=== PATIENT | male | born 1955 | race African-American/Black ===

== ENCOUNTER 2023-11-19 19:45 | Inpatient (IN) | payer OTHER ==
[~2023-11-19] VITALS: Ht 165.1 cm; Wt 70.3 kg
[2023-11-19] MEDS ORDERED: ACETAMINOPHEN 650MG SUPP PR STA (20:44)
[2023-11-19 21:18] LABS: HEMATOCRIT. 38.2 % (42.0-52.0); MEAN CORPUSCULAR HEMOGLOBIN 28.5 pg (28.0-32.0); MEAN CORPUSCULAR HGB CONC 34.1 g/dL (31.0-37.0); MEAN CORPUSCULAR VOLUME 83.5 fL (80.0-94.0); MEAN PLATELET VOLUME 8.6 fl (7.4-10.4); PLATELET 275 x1000/uL (130-400); RED BLOOD CELL COUNT 4.57 mill/uL (4.7-6.1); RED CELL DISTRIBUTION WIDTH 15.1 % (11.6-14.6); WHITE BLOOD COUNT 30.2 x1000/uL (4.5-11.0)
[2023-11-19 21:22] LABS: DIFFERENTIAL COMMENT 1
[2023-11-19] MEDS: MIDAZOLAM HCL 2 MG/2 ML VIAL IV ONE (21:24)
[2023-11-19] MEDS: ACETAMINOPHEN 650MG SUPP PR NR (21:25)
[2023-11-19 21:29] LABS: INR 1.6; PARTIAL THROMBOPLASTIN TIME 31.9 sec (23.4-31.0); PROTHROMBIN TIME 17.1 sec (9.6-11.0)
[2023-11-19 21:32] LABS: AMMONIA < 17 uMol/L (<32)
[2023-11-19 21:33] LABS: ACETAMINOPHEN < 2 ug/mL (10-30); ALANINE AMINOTRANSFERASE 57 IU/L (10-49); ALBUMIN 3.5 g/dL (3.2-4.8); ASPARTATE AMINOTRANSFERASE 53 IU/L (<34); BILIRUBIN TOTAL 2.9 mg/dL (0.1-1.0); CALCIUM 8.2 mg/dL (8.7-10.4); CARBON DIOXIDE 26 mEq/L (21-32); CHLORIDE 98 mEq/L (98-107); CREATININE 1.2 mg/dL (0.6-1.3); GLUCOSE 211 mg/dL (70-105); POTASSIUM 3.6 mEq/L (3.5-5.1); PROTEIN TOTAL 7.6 g/dL (6.0-8.3); SODIUM 136 mEq/L (136-145); UREA NITROGEN BLOOD 18 mg/dL (9-23)
[2023-11-19 21:35] LABS: LACTIC ACID 6.1 mmol/L (0.4-2.0); TROPONIN I HIGH SENSITIVITY 101 ng/L (3.0-53)
[2023-11-19] MEDS: CEFTRIAXONE 2GM/50ML 50 ML IV ONE (21:43)
[2023-11-19 21:46] LABS: PLATELET ESTIMATE NORMAL
[2023-11-19 21:50] LABS: CLARITY URINE CLOUDY (CLEAR); COLOR URINE DARK YELLOW (YELLOW); GLUCOSE URINE 2+ (NEGATIVE); KETONES URINE 1+ (NEGATIVE); LEUKOCYTE ESTERASE URINE 2+ (NEGATIVE); NITRITE URINE POSITIVE (NEGATIVE); OCCULT BLOOD URINE 2+ (NEGATIVE); PROTEIN URINE 2+ (NEGATIVE); SPECIFIC GRAVITY URINE 1.022 (1.005-1.030); UROBILINOGEN URINE >8.0 E.U./dL (0.2-1.0)
[2023-11-19 22:00] LABS: BACTERIA URINE 2+; SQUAMOUS EPITHELIAL CELL URINE 1+ /lpf (RARE/1+)
[2023-11-19] MEDS: SODIUM CHLORIDE 0.9% 1000ML BAG (SEPSIS BOLUS) IV ONE (22:15)
[2023-11-19] MEDS: VANCOMYCIN 1G PREMIX 200 ML IV ONE (22:20)
[2023-11-19] MEDS ORDERED: MAGNESIUM/ALUMINUM HYDROXIDE/SIMETHICONE 30ML UDC PO PRN (23:00)
[2023-11-19] MEDS ORDERED: DOCUSATE SODIUM 100MG CAPSULE PO PRN (23:00)
[2023-11-19] MEDS ORDERED: DEXTROSE 50% WATER 50ML SYRINGE IV PRN (23:00)
[2023-11-19] MEDS ORDERED: GUAIFENESIN 200MG/10ML SUGAR FREE UDC PO PRN (23:00)
[2023-11-19] MEDS ORDERED: IPRATROPIUM/ALBUTEROL 0.5-3(2.5)MG/3ML NEB HHN PRN (23:00)
[2023-11-19] MEDS ORDERED: ONDANSETRON HCL 4MG/2ML INJ IV PRN (23:00)
[2023-11-20] MEDS: KETOROLAC 30MG/ML VIAL IV NR (00:28)
[2023-11-20] MEDS: ACETAMINOPHEN 650MG SUPP PR PRN (00:29)
[2023-11-20] MEDS: DEXT 5%/0.9% NACL 1,000 ML IV SCH (00:35)
[2023-11-20] MEDS: IOHEXOL-300 100 ML BOTTLE ONE (00:37)
[2023-11-20] MEDS: FAMOTIDINE 20MG/2ML VIAL IV SCH (00:37)
[2023-11-20 01:28] LABS: CREATINE KINASE MB FRACTION 3.4 ng/mL (0.5-3.6)
[2023-11-20 05:53] LABS: HEMATOCRIT. 32.6 % (42.0-52.0); HEMOGLOBIN. 11.2 g/dL (14.0-18.0); MEAN CORPUSCULAR HEMOGLOBIN 28.4 pg (28.0-32.0); MEAN CORPUSCULAR HGB CONC 34.4 g/dL (31.0-37.0); MEAN CORPUSCULAR VOLUME 82.5 fL (80.0-94.0); MEAN PLATELET VOLUME 8.9 fl (7.4-10.4); PLATELET 210 x1000/uL (130-400); RED BLOOD CELL COUNT 3.95 mill/uL (4.7-6.1); RED CELL DISTRIBUTION WIDTH 14.8 % (11.6-14.6); WHITE BLOOD COUNT 29.1 x1000/uL (4.5-11.0)
[2023-11-20 06:06] LABS: ALANINE AMINOTRANSFERASE 40 IU/L (10-49); ALBUMIN 2.9 g/dL (3.2-4.8); ASPARTATE AMINOTRANSFERASE 35 IU/L (<34); BILIRUBIN TOTAL 2.3 mg/dL (0.1-1.0); CALCIUM 7.8 mg/dL (8.7-10.4); CARBON DIOXIDE 25 mEq/L (21-32); CHLORIDE 106 mEq/L (98-107); CHOLESTEROL 76 mg/dL (<200); CREATINE KINASE 468 IU/L (46-171); CREATININE 0.9 mg/dL (0.6-1.3); GLUCOSE 163 mg/dL (70-105); HDL CHOLESTEROL < 20 mg/dL (>55); LDL CHOLESTEROL 37 mg/dL (5-100); POTASSIUM 3.3 mEq/L (3.5-5.1); PROTEIN TOTAL 6.6 g/dL (6.0-8.3); SODIUM 138 mEq/L (136-145); THYROID STIMULATING HORMONE 0.23 uIU/mL (0.55-4.78); TRIGLYCERIDE 78 mg/dL (0-150); UREA NITROGEN BLOOD 18 mg/dL (9-23)
[2023-11-20 06:09] LABS: DIFFERENTIAL COMMENT 1
[2023-11-20 06:26] LABS: TROPONIN I HIGH SENSITIVITY 106 ng/L (3.0-53)
[2023-11-20] MEDS: INSULIN LISPRO 100 UNITS/ML SUBCUT SCH (08:20)
[2023-11-20] MEDS ORDERED: CEFEPIME 1GM IN DEXT 5% 50ML IV SCH (09:00)
[2023-11-20] MEDS: BLOOD SUGAR DIAGNOSTIC STRIP TEST SCH (09:27)
[2023-11-20] MEDS: ENOXAPARIN 40MG/0.4ML SYR SUBCUT SCH (09:34)
[2023-11-20] MEDS: VANCOMYCIN 750MG/150ML IV SCH (10:00)
[2023-11-20 12:33] LABS: PLATELET ESTIMATE NORMAL; TARGET CELLS 1+
[2023-11-20] MEDS: CEFEPIME 1GM/50ML 50 ML IV SCH (12:49)
[2023-11-20] MEDS: KCL 20MEQ/100ML PREMIX 100 ML IV SCH (13:28)
[2023-11-20 14:57] LABS: CREATINE KINASE 517 IU/L (46-171); CREATINE KINASE MB FRACTION 8.2 ng/mL (0.5-3.6)
[2023-11-20 15:08] LABS: TROPONIN I HIGH SENSITIVITY 60 ng/L (3.0-53)
[2023-11-20 18:00] VITALS: BP 139/71; PULSE 90; RESP 16; TEMP 98
[2023-11-20 18:52] VITALS: BP 139/71; PULSE 90; RESP 18; TEMP 98
[2023-11-20 20:00] VITALS: BP 147/71; PULSE 105; RESP 22; TEMP 98.1
[2023-11-20 22:00] VITALS: BP 155/76; PULSE 104; RESP 21
[2023-11-21] VITALS (24 sets, daily range): BP systolic 124–160; BP diastolic 57–137; PULSE 73–112; RESP 0–23; TEMP 98.1–101.3
[2023-11-21 04:59] LABS: HEMATOCRIT. 34.9 % (42.0-52.0); HEMOGLOBIN. 11.8 g/dL (14.0-18.0); MEAN CORPUSCULAR HGB CONC 33.7 g/dL (31.0-37.0); MEAN PLATELET VOLUME 9.3 fl (7.4-10.4); PLATELET 190 x1000/uL (130-400); RED BLOOD CELL COUNT 4.21 mill/uL (4.7-6.1); WHITE BLOOD COUNT 25.1 x1000/uL (4.5-11.0)
[2023-11-21 05:08] LABS: CALCIUM 8.7 mg/dL (8.7-10.4); CARBON DIOXIDE 26 mEq/L (21-32); CHLORIDE 108 mEq/L (98-107); CREATININE 0.9 mg/dL (0.6-1.3); GLUCOSE 133 mg/dL (70-105); POTASSIUM 3.5 mEq/L (3.5-5.1); SODIUM 140 mEq/L (136-145); UREA NITROGEN BLOOD 20 mg/dL (9-23)
[2023-11-21 08:41] LABS: DIFFERENTIAL COMMENT 1
[2023-11-21] MEDS: CLONIDINE 0.1MG TABLET PO PRN (16:55)
[2023-11-21] MEDS: GENTAMICIN 120MG PREMIX 100 ML IV SCH (17:02)
[2023-11-21] MEDS: METRONIDAZOLE 500 MG PREMIX 100 ML IV SCH (17:02)
[2023-11-21] MEDS ORDERED: HYDRALAZINE 20MG/ML VIAL IV PRN (17:45)
[2023-11-21 18:08] LABS: AMMONIA 17 uMol/L (<32)
[2023-11-21] MEDS: CEFTRIAXONE 2GM/50ML 50 ML IV SCH (18:31)
[2023-11-21] MEDS: ACETAMINOPHEN 325MG TABLET PO PRN (20:48)
[2023-11-22] VITALS (37 sets, daily range): BP systolic 115–158; BP diastolic 50–88; PULSE 68–132; RESP 0–18; TEMP 97–101.1
[2023-11-22 00:46] LABS: PLATELET ESTIMATE NORMAL
[2023-11-22 07:45] LABS: HEMATOCRIT. 31.8 % (42.0-52.0); HEMOGLOBIN. 10.8 g/dL (14.0-18.0); MEAN CORPUSCULAR HEMOGLOBIN 28.1 pg (28.0-32.0); MEAN CORPUSCULAR HGB CONC 33.9 g/dL (31.0-37.0); MEAN CORPUSCULAR VOLUME 83.1 fL (80.0-94.0); MEAN PLATELET VOLUME 9.8 fl (7.4-10.4); PLATELET 206 x1000/uL (130-400); RED BLOOD CELL COUNT 3.82 mill/uL (4.7-6.1); RED CELL DISTRIBUTION WIDTH 14.8 % (11.6-14.6); WHITE BLOOD COUNT 14.3 x1000/uL (4.5-11.0)
[2023-11-22 08:18] LABS: DIFFERENTIAL COMMENT 1
[2023-11-22 08:23] LABS: CALCIUM 8.3 mg/dL (8.7-10.4); CARBON DIOXIDE 27 mEq/L (21-32); CHLORIDE 109 mEq/L (98-107); GLUCOSE 123 mg/dL (70-105); POTASSIUM 4.4 mEq/L (3.5-5.1); SODIUM 143 mEq/L (136-145); UREA NITROGEN BLOOD 19 mg/dL (9-23)
[2023-11-22 10:08] LABS: ERYTHROCYTE SEDIMENTATION RATE 91 mm/hr (0-20)
[2023-11-22] MEDS: ACETAMINOPHEN 325MG TABLET PO PRN (13:17)
[2023-11-22 16:40] LABS: PLATELET ESTIMATE NORMAL; TARGET CELLS 1+
[2023-11-22] MEDS: GENTAMICIN 120MG PREMIX 100 ML IV SCH (17:14)
[2023-11-22] MEDS: QUETIAPINE FUMARATE 25MG TABLET PO SCH (20:39)
[2023-11-23] VITALS (13 sets, daily range): BP systolic 108–136; BP diastolic 42–64; PULSE 88–106; RESP 0–34; TEMP 96.8–97.7
[2023-11-23 10:15] LABS: BASOPHILS % 0.3 % (0.0-2.0); HEMATOCRIT. 35.5 % (42.0-52.0); HEMOGLOBIN. 11.8 g/dL (14.0-18.0); LYMPHOCYTES % 8.2 % (20.0-50.0); MEAN CORPUSCULAR HEMOGLOBIN 28.7 pg (28.0-32.0); MEAN CORPUSCULAR HGB CONC 33.2 g/dL (31.0-37.0); MEAN CORPUSCULAR VOLUME 86.2 fL (80.0-94.0); MEAN PLATELET VOLUME 9.9 fl (7.4-10.4); MONOCYTES % 8.7 % (2.0-8.0); NEUTROPHILS % 82.8 % (40.0-76.0); PLATELET 207 x1000/uL (130-400); RED BLOOD CELL COUNT 4.12 mill/uL (4.7-6.1); WHITE BLOOD COUNT 17.5 x1000/uL (4.5-11.0)
[2023-11-23 10:59] LABS: CALCIUM 8.1 mg/dL (8.7-10.4); CARBON DIOXIDE 22 mEq/L (21-32); CHLORIDE 114 mEq/L (98-107); CREATININE 0.9 mg/dL (0.6-1.3); GENTAMICIN TROUGH 3.8 ug/mL (<2.0); GLUCOSE 126 mg/dL (70-105); POTASSIUM 3.5 mEq/L (3.5-5.1); SODIUM 145 mEq/L (136-145); UREA NITROGEN BLOOD 14 mg/dL (9-23)
[2023-11-23] MEDS: GENTAMICIN SULFATE 160 MG in SODIUM CHLORIDE 0.9% 100 ML IV SCH (18:07)
[2023-11-24] VITALS (12 sets, daily range): BP systolic 110–135; BP diastolic 48–66; PULSE 86–101; RESP 14–25; TEMP 97–98.6
[2023-11-24 06:59] LABS: BASOPHILS % 0.1 % (0.0-2.0); EOSINOPHILS % 0.1 % (0.0-5.0); HEMATOCRIT. 28.5 % (42.0-52.0); HEMOGLOBIN. 9.7 g/dL (14.0-18.0); LYMPHOCYTES % 8.9 % (20.0-50.0); MEAN CORPUSCULAR HEMOGLOBIN 28.3 pg (28.0-32.0); MEAN CORPUSCULAR HGB CONC 34.1 g/dL (31.0-37.0); MEAN PLATELET VOLUME 9.7 fl (7.4-10.4); NEUTROPHILS % 84.9 % (40.0-76.0); PLATELET 174 x1000/uL (130-400); RED BLOOD CELL COUNT 3.44 mill/uL (4.7-6.1); RED CELL DISTRIBUTION WIDTH 14.4 % (11.6-14.6); WHITE BLOOD COUNT 11.8 x1000/uL (4.5-11.0)
[2023-11-24 07:18] LABS: CALCIUM 7.8 mg/dL (8.7-10.4); CARBON DIOXIDE 23 mEq/L (21-32); CHLORIDE 112 mEq/L (98-107); CREATININE 0.9 mg/dL (0.6-1.3); GLUCOSE 128 mg/dL (70-105); PHOSPHORUS 1.8 mg/dL (2.5-4.9); POTASSIUM 3.1 mEq/L (3.5-5.1); SODIUM 137 mEq/L (136-145); UREA NITROGEN BLOOD 18 mg/dL (9-23)
[2023-11-24] MEDS: CEFTRIAXONE 2GM/50ML 50 ML IV SCH (09:41)
[2023-11-24] MEDS: MAGNESIUM OXIDE 400MG TABLET PO SCH (09:45)
[2023-11-24] MEDS: POTASSIUM PHOSPHATE 30 MMOL in DEXT 5% WATER 490 ML IV NR (10:54)
[2023-11-25] VITALS (7 sets, daily range): BP systolic 117–133; BP diastolic 43–53; PULSE 73–92; RESP 12–19; TEMP 97.3–98.6
[2023-11-25 06:01] LABS: ALANINE AMINOTRANSFERASE 31 IU/L (10-49); ALBUMIN 2.5 g/dL (3.2-4.8); ASPARTATE AMINOTRANSFERASE 33 IU/L (<34); BILIRUBIN TOTAL 0.8 mg/dL (0.1-1.0); CALCIUM 7.8 mg/dL (8.7-10.4); CARBON DIOXIDE 25 mEq/L (21-32); CHLORIDE 116 mEq/L (98-107); CREATININE 0.8 mg/dL (0.6-1.3); GLUCOSE 114 mg/dL (70-105); PHOSPHORUS 2.1 mg/dL (2.5-4.9); POTASSIUM 3.3 mEq/L (3.5-5.1); PROTEIN TOTAL 5.7 g/dL (6.0-8.3); UREA NITROGEN BLOOD 13 mg/dL (9-23)
[2023-11-25 06:05] LABS: SODIUM 147 mEq/L (136-145)
[2023-11-25] MEDS: POTASSIUM-SODIUM PHOSPHATE POWDER PACKET PO NR (11:37)
[2023-11-25] MEDS: POTASSIUM CHLORIDE 20MEQ TABLET SR PO NR (11:38)
[2023-11-25 17:10] LABS: *HSV 1 DNA PCR Negative (Negative); *HSV 2 DNA PCR Negative (Negative)
[2023-11-25] MEDS: GENTAMICIN SULFATE 180 MG in SODIUM CHLORIDE 0.9% 100 ML IV SCH (23:05)
[2023-11-26] VITALS: BP 124/45; PULSE 89; RESP 18; TEMP 97.3
[2023-11-26 04:00] VITALS: BP 126/46; PULSE 88; RESP 18; TEMP 98
[2023-11-26 07:29] LABS: BASOPHILS % 0.2 % (0.0-2.0); EOSINOPHILS % 0.5 % (0.0-5.0); HEMATOCRIT. 31.9 % (42.0-52.0); HEMOGLOBIN. 10.9 g/dL (14.0-18.0); LYMPHOCYTES % 10.8 % (20.0-50.0); MEAN CORPUSCULAR HEMOGLOBIN 28.7 pg (28.0-32.0); MEAN CORPUSCULAR HGB CONC 34.1 g/dL (31.0-37.0); MEAN CORPUSCULAR VOLUME 84.2 fL (80.0-94.0); MONOCYTES % 5.7 % (2.0-8.0); NEUTROPHILS % 82.8 % (40.0-76.0); PLATELET 217 x1000/uL (130-400); RED BLOOD CELL COUNT 3.79 mill/uL (4.7-6.1); RED CELL DISTRIBUTION WIDTH 14.9 % (11.6-14.6); WHITE BLOOD COUNT 9.4 x1000/uL (4.5-11.0)
[2023-11-26 07:46] LABS: ALANINE AMINOTRANSFERASE 27 IU/L (10-49); ALBUMIN 2.4 g/dL (3.2-4.8); ASPARTATE AMINOTRANSFERASE 27 IU/L (<34); BILIRUBIN TOTAL 0.6 mg/dL (0.1-1.0); CALCIUM 7.8 mg/dL (8.7-10.4); CARBON DIOXIDE 25 mEq/L (21-32); CHLORIDE 114 mEq/L (98-107); CREATININE 0.8 mg/dL (0.6-1.3); GLUCOSE 93 mg/dL (70-105); POTASSIUM 3.6 mEq/L (3.5-5.1); PROTEIN TOTAL 5.5 g/dL (6.0-8.3); SODIUM 145 mEq/L (136-145); UREA NITROGEN BLOOD 12 mg/dL (9-23)
[2023-11-26 08:00] VITALS: BP 144/56; PULSE 97; RESP 18; TEMP 97.9
[2023-11-26 12:00] VITALS: BP 130/47; PULSE 119; RESP 18; TEMP 97.5
[2023-11-26 16:00] VITALS: BP 135/51; PULSE 94; RESP 18; TEMP 99
[2023-11-26 20:00] VITALS: BP 129/63; PULSE 100; RESP 19; TEMP 98.6
[2023-11-27] VITALS: BP 139/69; PULSE 88; RESP 19; TEMP 98.6
[2023-11-27 04:00] VITALS: BP 133/75; PULSE 74; RESP 19; TEMP 97.8
[2023-11-27 08:00] VITALS: BP 117/42; PULSE 92; RESP 18; TEMP 96.6
[2023-11-27] MEDS: LEVOFLOXACIN 500MG TABLET PO SCH (11:20)
[2023-11-27 12:00] VITALS: BP 136/53; PULSE 101; RESP 18; TEMP 98.4
[2023-11-27 16:00] VITALS: BP 140/54; PULSE 107; RESP 18; TEMP 97.1
[2023-11-27 20:00] VITALS: BP 115/43; PULSE 106; RESP 20; TEMP 98.2
[2023-11-28] VITALS: BP 122/44; PULSE 92; RESP 18; TEMP 98.2
[2023-11-28 04:00] VITALS: BP 120/47; PULSE 89; RESP 19; TEMP 98.2
[2023-11-28 05:41] LABS: BASOPHILS % 0.4 % (0.0-2.0); EOSINOPHILS % 0.3 % (0.0-5.0); HEMATOCRIT. 29.4 % (42.0-52.0); HEMOGLOBIN. 10.4 g/dL (14.0-18.0); LYMPHOCYTES % 12.1 % (20.0-50.0); MEAN CORPUSCULAR HEMOGLOBIN 29.4 pg (28.0-32.0); MEAN CORPUSCULAR HGB CONC 35.4 g/dL (31.0-37.0); MEAN CORPUSCULAR VOLUME 83.2 fL (80.0-94.0); MEAN PLATELET VOLUME 9.8 fl (7.4-10.4); MONOCYTES % 6.9 % (2.0-8.0); NEUTROPHILS % 80.3 % (40.0-76.0); PLATELET 186 x1000/uL (130-400); RED BLOOD CELL COUNT 3.53 mill/uL (4.7-6.1); RED CELL DISTRIBUTION WIDTH 14.9 % (11.6-14.6); WHITE BLOOD COUNT 7.9 x1000/uL (4.5-11.0)
[2023-11-28 08:00] VITALS: BP 138/46; PULSE 94; RESP 20; TEMP 97.8
[2023-11-28 12:00] VITALS: BP 122/51; PULSE 99; RESP 20; TEMP 98.3
[2023-11-28 16:00] VITALS: BP 126/78; PULSE 86; RESP 19; TEMP 98.9
[2023-11-28 20:00] VITALS: BP 119/63; PULSE 100; RESP 20; TEMP 97.3
[2023-11-29] VITALS: BP_SYST 128; BP_SYST 136; BP_DIAS 40; BP_DIAS 50; PULSE 102; PULSE 103; RESP 19; RESP 20; TEMP 97.1; TEMP 97.9
[2023-11-29 12:00] VITALS: BP 141/44; PULSE 109; RESP 19; TEMP 97.7
[2023-11-29 16:00] VITALS: BP 137/51; PULSE 106; RESP 20; TEMP 97.8
[2023-11-29 20:00] VITALS: BP_SYST 131; BP_SYST 138; BP_DIAS 41; BP_DIAS 55; PULSE 108; PULSE 95; RESP 20; TEMP 98.4; TEMP 98.8
[2023-11-30] VITALS: BP 132/50; PULSE 102; RESP 20; TEMP 98.8
[2023-11-30 04:00] VITALS: BP 142/48; PULSE 103; RESP 20; TEMP 98.1
[2023-11-30 08:00] VITALS: BP 138/45; PULSE 68; RESP 19; TEMP 97.9
[2023-11-30 12:00] VITALS: BP 133/48; PULSE 109; RESP 18; TEMP 97.9
[2023-11-30 16:00] VITALS: BP 140/45; PULSE 105; RESP 19; TEMP 97.5
[2023-11-30 20:00] VITALS: BP 134/46; PULSE 119; RESP 18; TEMP 98.4
[2023-12-01] VITALS (11 sets, daily range): BP systolic 98–152; BP diastolic 37–76; PULSE 55–155; RESP 18–33; TEMP 96.4–98.4; O2SAT 97–100
[2023-12-01] MEDS: LACTATED RINGERS 1,000 ML IV ONE (13:00)
[2023-12-01] MEDS: METHYLPREDNISOLONE SOD SUCC 125MG/2ML (ACT-O-VIAL) IV ONE (13:59)
[2023-12-01] MEDS: IPRATROPIUM/ALBUTEROL 0.5-3(2.5)MG/3ML NEB HHN STA (14:15)
[2023-12-01 14:41] LABS: BG CARBOXYHEMOGLOBIN 0.3 % (0.5-1.5); BG DEOXYHEMOGLOBIN 3.3 % (0.0-5.0); BG FRACTION INSPIRED OXYGEN 100; BG HCO3 ACT 21.1 mmol/L (22.0-26.0); BG METHEMOGLOBIN 0.1 % (0.0-1.5); BG OXYGEN SATURATION 96.7 % (92.0-98.5); BG OXYHEMOGLOBIN 96.3 % (94.0-97.0); BG PCO2 34.7 mmHg (35.0-45.0); BG PH 7.402 (7.350-7.450); BG PO2 95.5 mmHg (75.0-100.0); BG SAMPLE SITE RIGHT BRACHIAL; BG TOTAL HEMOGLOBIN 12.4 g/dL (12.0-18.0); BG VENT MODE MASK - NRB
[2023-12-01 17:42] LABS: HEMOGLOBIN 10.8 g/dL (14.0-18.0); MEAN CORPUSCULAR HEMOGLOBIN 27.6 pg (28.0-32.0); MEAN CORPUSCULAR HGB CONC 32.9 g/dL (31.0-37.0); PLATELET 235 x1000/uL (130-400); RED BLOOD CELL COUNT 3.93 mill/uL (4.7-6.1); RED CELL DISTRIBUTION WIDTH 15.9 % (11.6-14.6)
[2023-12-01] MEDS: METHYLPREDNISOLONE SOD SUCC 40MG/ML (ACT-O-VIAL) IV SCH (17:56)
[2023-12-01] MEDS: VANCOMYCIN 1.25GM PMX (XELLIA) 250 ML IV NR (17:56)
[2023-12-01] MEDS: PIPERACILLIN/TAZO 3.375G/50ML 50 ML IV SCH (17:56)
[2023-12-01 17:59] LABS: CALCIUM 8.1 mg/dL (8.7-10.4); CARBON DIOXIDE 22 mEq/L (21-32); CHLORIDE 106 mEq/L (98-107); CREATININE 1.1 mg/dL (0.6-1.3); GLUCOSE 136 mg/dL (70-105); SODIUM 136 mEq/L (136-145); UREA NITROGEN BLOOD 11 mg/dL (9-23)
[2023-12-01 18:03] LABS: LACTIC ACID 2.9 mmol/L (0.4-2.0)
[2023-12-01] MEDS: ACETYLCYSTEINE 200MG/ML 20% VIAL 4ML INH SCH (20:00)
[2023-12-01] MEDS: IPRATROPIUM/ALBUTEROL 0.5-3(2.5)MG/3ML NEB HHN SCH (20:30)
[2023-12-02] VITALS (18 sets, daily range): BP systolic 79–128; BP diastolic 42–71; PULSE 57–147; RESP 11–38; TEMP 96.7–97.2; O2SAT 93–100
[2023-12-02 05:56] LABS: HEMATOCRIT. 33.9 % (42.0-52.0); HEMOGLOBIN. 11.4 g/dL (14.0-18.0); MEAN CORPUSCULAR HEMOGLOBIN 28.2 pg (28.0-32.0); MEAN CORPUSCULAR HGB CONC 33.6 g/dL (31.0-37.0); MEAN CORPUSCULAR VOLUME 83.9 fL (80.0-94.0); MEAN PLATELET VOLUME 9.4 fl (7.4-10.4); PLATELET 217 x1000/uL (130-400); RED BLOOD CELL COUNT 4.04 mill/uL (4.7-6.1); RED CELL DISTRIBUTION WIDTH 16.2 % (11.6-14.6); WHITE BLOOD COUNT 6.5 x1000/uL (4.5-11.0)
[2023-12-02 06:06] LABS: ALANINE AMINOTRANSFERASE 20 IU/L (10-49); ALBUMIN 2.7 g/dL (3.2-4.8); ASPARTATE AMINOTRANSFERASE 30 IU/L (<34); BILIRUBIN TOTAL 0.7 mg/dL (0.1-1.0); CALCIUM 7.9 mg/dL (8.7-10.4); CARBON DIOXIDE 23 mEq/L (21-32); CHLORIDE 105 mEq/L (98-107); CREATININE 1.2 mg/dL (0.6-1.3); GLUCOSE 148 mg/dL (70-105); LACTIC ACID 2.2 mmol/L (0.4-2.0); POTASSIUM 4.3 mEq/L (3.5-5.1); PROTEIN TOTAL 5.9 g/dL (6.0-8.3); SODIUM 136 mEq/L (136-145); UREA NITROGEN BLOOD 14 mg/dL (9-23)
[2023-12-02 06:45] LABS: DIFFERENTIAL COMMENT 1
[2023-12-02 12:29] LABS: ANISOCYTOSIS 1+; PLATELET ESTIMATE NORMAL
[2023-12-02] MEDS: VANCOMYCIN 750MG/150ML IV SCH (12:37)
[2023-12-02] MEDS ORDERED: LACTATED RINGERS 1,000 ML IV SCH (13:00)
[2023-12-02] MEDS: ACETYLCYSTEINE 200MG/ML 20% VIAL 4ML INH SCH (14:14)
[2023-12-03] MEDS ORDERED: ENOXAPARIN 40MG/0.4ML SYR SUBCUT SCH (09:00)
== END 2023-12-03 00:05 | DRG 871 ==
LOC: ER 19:45 → 5EST 11-20 18:03 → 8WST 11-25 06:10 → 6WST 11-29 00:36 → 5EST 12-01 14:59
PROVIDERS: ADMIT Hospitalist; ATTEND Hospitalist
PROC: 5A09357 Assistance with Respiratory Ventilation, Less than 24 Consecutive Hours, Continuous Positive Airway Pressure (ICD-10-PCS; 2023-12-01)
PROC: 5A12012 Performance of Cardiac Output, Single, Manual (ICD-10-PCS; principal; 2023-12-03)
PROC: 0BH17EZ Insertion of Endotracheal Airway into Trachea, Via Natural or Artificial Opening (ICD-10-PCS; 2023-12-03)
DX: A41.51 Sepsis due to Escherichia coli [E. coli] (principal); G93.41 Metabolic encephalopathy; J96.00 Acute respiratory failure, unspecified whether with hypoxia or hypercapnia; I21.4 Non-ST elevation (NSTEMI) myocardial infarction; J96.01 Acute respiratory failure with hypoxia; E46 Unspecified protein-calorie malnutrition; D68.9 Coagulation defect, unspecified; N17.9 Acute kidney failure, unspecified; K50.90 Crohn's disease, unspecified, without complications; N39.0 Urinary tract infection, site not specified; Z59.01 Sheltered homelessness; I50.22 Chronic systolic (congestive) heart failure; Z68.25 Body mass index [BMI] 25.0-25.9, adult; E80.6 Other disorders of bilirubin metabolism; D64.9 Anemia, unspecified; B95.3 Streptococcus pneumoniae as the cause of diseases classified elsewhere; E87.6 Hypokalemia; N40.0 Benign prostatic hyperplasia without lower urinary tract symptoms; F39 Unspecified mood [affective] disorder; K76.9 Liver disease, unspecified; R73.9 Hyperglycemia, unspecified; Z78.1 Physical restraint status
CPT/HCPCS: 31500; 36415; 36600; 71045; 74177; 80048; 80053; 80061; 80170; 80202; 80307; 80329; 81003; 82140; 82375; 82550; 82553; 82805; 82962; 83036; 83605; 83735; 84100; 84145; 84443; 84484; 85025; 85027; 85651; 86635; 87077; 87186; 87529; 87899; 92610; 93005; 93306; 93970; 94640; 94660; 97110; 97116; 97162; 97166; 97530; 97535; 99291; C1893; J0692; J0696; J1580; J1650; J1815; J1885; J2250; J2543; J2920; J2930; J3370; J3480; J3490; J7030; J7050; J7060; J7608; Q9967